=== PATIENT | female | born 1980 | race Two or more races ===

== ENCOUNTER 2020-07-28 16:02 | Emergency (ER) | payer MEDICAID, OTHER ==
[~2020-07-28] VITALS: Ht 154.9 cm; Wt 72.6 kg
[2020-07-28 18:58] VITALS: BP 134/83
[2020-07-28] MEDS ORDERED: PROMETHAZINE HCL 25 MG RECT SUPP PR ONE (19:00)
[2020-07-28] MEDS ORDERED: PROMETHAZINE HCL 6.25 MG/5 ML ORAL SYRUP PO ONE (19:15)
== END 2020-07-28 21:14 | disposition home or self-care (01) ==
LOC: ER 16:02
DX: J04.0 Acute laryngitis (principal); J30.2 Other seasonal allergic rhinitis; Z20.822 Contact with and (suspected) exposure to COVID-19
CPT/HCPCS: 36415; 71046; 87426

== ENCOUNTER 2021-03-08 15:34 | Emergency (ER) | payer MEDICAID ==
[~2021-03-08] VITALS: Ht 152.4 cm; Wt 72.6 kg
[2021-03-08] MEDS ORDERED: AZIT1POW PO (18:49)
[2021-03-08] MEDS ORDERED: METH4PAK PO (18:49)
[2021-03-08 19:55] VITALS: BP 124/71
== END 2021-03-08 20:11 | disposition home or self-care (01) ==
LOC: ER 15:34
DX: J20.9 Acute bronchitis, unspecified (principal)
CPT/HCPCS: 71045